=== PATIENT | male | born 1955 | race Caucasian/White ===

== ENCOUNTER → 2021-12-22 10:57 | Outpatient (CLI) | payer OTHER, SELFPAY ==
[2021-12-22 13:05] LABS: Add Manual Diff / Slide Review NO; Basophils Absolute Auto 0 /uL (0-100); Basophils Percent Auto 1.1 % (0-2); Eosinophils Absolute Auto 0 /uL (0-450); Hematocrit 44.7 % (41-53); Lymphocytes Absolute Auto 900 /uL (1100-4500); Lymphocytes Percent Auto 22.7 % (25-40); Mean Corpuscular HGB Conc 33.5 % (30-36); Mean Corpuscular Hemoglobin 31.5 PG (26-34); Monocytes Absolute Auto 600 /uL (0-900); Monocytes Percent Auto 14.5 % (3-14); Neutrophils Absolute Auto 2400 /uL (1500-7000); Neutrophils Percent Auto 60.7 % (50-75); Platelet Count 212 X10^3/uL (150-400); Red Blood Cell Count 4.76 X10^6/uL (4.5-5.9); Red Cell Distribution Width 14.2 % (11.6-14.8); White Blood Cell Count 3.9 X10^3/uL (4.5-11.0)
[2021-12-22 13:38] LABS: Alanine Aminotransferase 32 IU/L (<50); Albumin 4.5 g/dL (3.5-5.0); Albumin Globulin Ratio 1.4 (1.0-2.8); Alkaline Phosphatase 87 U/L (38-126); Aspartate Aminotransferase 36 IU/L (17-59); BUN Creatinine Ratio 19.7 (6-22); Bilirubin Total 0.8 mg/dL (0.2-1.3); Blood Urea Nitrogen 15 mg/dL (9-20); Calcium 9.4 mg/dL (8.4-10.2); Carbon Dioxide 31 mmol/L (22-32); Chloride 103 mmol/L (98-107); Cholesterol 152 mg/dL (140-199); Estimated Glomerular Filt Rate > 60.0 mL/min (>60); Globulin 3.2 g/dL (1.7-4.1); Glucose 97 mg/dL (80-110); HDL Cholesterol 42 mg/dL (40-60); HEMOLYSIS < 15 (0-50); LDL Cholesterol Calculated 99 mg/dL (<100); Potassium 4.7 mmol/L (3.4-5.1); Sodium 138 mmol/L (137-145); Total Protein 7.7 g/dL (6.3-8.2); Triglycerides 57 mg/dL (35-150)
[2021-12-22 14:06] LABS: Prostate Specific Antigen Scrn 1.23 ng/mL (0.1-4.0)
== END ==
PROVIDERS: PCP Internal Medicine; Referring Provider Internal Medicine; Visit Provider Internal Medicine
DX: G25.81 Restless legs syndrome (principal); I48.0 Paroxysmal atrial fibrillation; Z13.6 Encounter for screening for cardiovascular disorders; Z12.5 Encounter for screening for malignant neoplasm of prostate
CPT/HCPCS: 36415; 80053; 80061; 85025; G0103

== ENCOUNTER → 2022-04-02 08:08 | Outpatient (CLI) | payer OTHER, SELFPAY ==
--- NOTE | 2022-04-02 | DI.MRI.S_ITS ---
PROCEDURE: MR KNEE RT WO CON INDICATIONS: Pain in right knee/eval for loose body or meniscal TECHNIQUE: Noncontrast sagittal PD fast spin echo and T2 fast spin echo with fat saturation, sagittal 3-D FLASH with fat saturation; coronal T1 spin echo and PD fast spin echo with fat saturation, and axial PD fast spin echo with fat saturation through the knee. COMPARISON: [facility], CR, XR KNEE 4+ VIEWS RIGHT, 03/06/2022, 14:58. FINDINGS: Image quality: Excellent. Menisci: Amorphous high signal intensity within the posterior horn medial meniscus is present without articular surface extension, consistent with myxoid degeneration. There is linear horizontal high signal intensity within the lateral meniscal body, demonstrating free edge extension, indicating horizontal tearing, involving the inner, middle, and peripheral 3rd. Cruciate ligaments: The anterior cruciate ligament is intact. Moderate grade partial thickness tearing of the mid and superior aspect of the posterior cruciate ligament. Medial structures: The medial collateral ligament appears intact. Visualized portions of the pes anserinus tendons appear normal. No abnormal bursal fluid. Lateral structures: The lateral collateral ligament demonstrates mild T2 signal elevation at the femoral origin. The long and short heads of the biceps femoris tendon appear intact. The popliteus tendon appears normal. Iliotibial band appears normal. Anterior structures: The quadriceps and patellar tendons appear intact. Patellar alignment is normal. No femoral trochlear dysplasia or ventral trochlear prominence. No edema in the infrapatellar fat pad. Bones and cartilage: No bone marrow contusions or fractures. There is mild subchondral degenerative marrow edema within the patellar apex and medial patellar facet, as well as the central femoral trochlea. Moderate tricompartmental periarticular osteophyte formation. Moderate articular cartilage loss diffusely overlies the weight-bearing aspects of the medial and lateral compartments. Severe articular cartilage loss overlies the medial patellar facet and central femoral trochlea. Joint space: There is a moderate knee joint effusion. A few small intra-articular loose bodies are present measuring less than 5 mm diameter. No Corcoran's cyst. Normal appearing synovial plicae are incidentally noted. IMPRESSION: 1. Partial-thickness posterior cruciate ligament tear. 2. 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 3. Lateral meniscal tearing. 4. Low-grade partial thickness lateral collateral ligament tear. 5. Tricompartmental osteoarthritis with associated articular cartilage loss. 6. Knee joint effusion. Small intra-articular loose bodies. Dictated by: Ellen Morin M.D. on 04/02/2022 at 8:55 Approved by: Ellen Morin M.D. on 04/02/2022 at 8:58
== END ==
PROVIDERS: PCP Internal Medicine; Referring Provider Orthopaedic Surgery; Visit Provider Orthopaedic Surgery
DX: S83.521A Sprain of posterior cruciate ligament of right knee, initial encounter (principal); S83.421A Sprain of lateral collateral ligament of right knee, initial encounter; S83.281A Other tear of lateral meniscus, current injury, right knee, initial encounter; M17.11 Unilateral primary osteoarthritis, right knee; M25.461 Effusion, right knee; M25.561 Pain in right knee
CPT/HCPCS: 73721

== ENCOUNTER → 2022-12-24 09:17 | Outpatient (CLI) | payer OTHER, SELFPAY ==
[2022-12-24 11:52] LABS: Add Manual Diff / Slide Review NO; Basophils Absolute Auto 0 /uL (0-100); Eosinophils Absolute Auto 0 /uL (0-450); Eosinophils Percent Auto 1.2 % (2-4); Hematocrit 46.8 % (41-53); Hemoglobin 15.7 g/dL (13.5-17.5); Lymphocytes Absolute Auto 800 /uL (1100-4500); Lymphocytes Percent Auto 19.2 % (25-40); Mean Corpuscular HGB Conc 33.6 % (30-36); Mean Corpuscular Hemoglobin 31.3 PG (26-34); Mean Corpuscular Volume 93.3 fL (80-100); Monocytes Absolute Auto 500 /uL (0-900); Monocytes Percent Auto 13.4 % (3-14); Neutrophils Absolute Auto 2600 /uL (1500-7000); Neutrophils Percent Auto 65.2 % (50-75); Platelet Count 222 X10^3/uL (150-400); Red Blood Cell Count 5.02 X10^6/uL (4.5-5.9); Red Cell Distribution Width 14.3 % (11.6-14.8)
[2022-12-24 12:09] LABS: Alanine Aminotransferase 44 IU/L (<50); Albumin 4.6 g/dL (3.5-5.0); Albumin Globulin Ratio 1.5 (1.0-2.8); Alkaline Phosphatase 77 U/L (38-126); Aspartate Aminotransferase 31 IU/L (17-59); BUN Creatinine Ratio 16.9 (6-22); Bilirubin Total 0.6 mg/dL (0.2-1.3); Blood Urea Nitrogen 12 mg/dL (9-20); Calcium 9.4 mg/dL (8.4-10.2); Carbon Dioxide 30 mmol/L (22-32); Chloride 100 mmol/L (98-107); Cholesterol 194 mg/dL (140-199); Estimated Glomerular Filt Rate > 60 mL/min (>60); Glucose 111 mg/dL (80-110); HDL Cholesterol 44 mg/dL (40-60); HEMOLYSIS < 15 (0-50); LDL Cholesterol Calculated 124 mg/dL (<100); Potassium 5.1 mmol/L (3.4-5.1); Sodium 137 mmol/L (137-145); Total Protein 7.6 g/dL (6.3-8.2); Triglycerides 132 mg/dL (35-150)
[2022-12-24 12:35] LABS: Prostate Specific Antigen Scrn 1.32 ng/mL (0.1-4.0)
== END ==
PROVIDERS: PCP Internal Medicine; Referring Provider Internal Medicine; Visit Provider Internal Medicine
DX: G25.81 Restless legs syndrome (principal); Z13.6 Encounter for screening for cardiovascular disorders; Z12.5 Encounter for screening for malignant neoplasm of prostate; I48.0 Paroxysmal atrial fibrillation; Z13.220 Encounter for screening for lipoid disorders; Z79.899 Other long term (current) drug therapy
CPT/HCPCS: 36415; 80053; 80061; 85025; G0103

== ENCOUNTER 2023-05-18 09:00 | Outpatient (RCR) | payer OTHER, SELFPAY ==
--- NOTE | 2023-04-20 10:07 | PT.OIE ---
Current Diagnoses Low back pain, unspecified (04/20/23) Soft tissue disorder, unspecified (04/20/23) Abnormal posture (04/20/23) Weakness (04/20/23) Past Medical History (Last Reviewed 03/01/23 @ 10:24 by Mayra Posadas PA-C) Osteoarthritis, knee Paroxysmal atrial fibrillation (~2009) Restless leg syndrome (~2020) Past Surgical History (Last Reviewed 03/01/23 @ 10:24 by Mayra Posadas PA-C) Anesthesia History of appendectomy (~1966) History of cardiac radiofrequency ablation (~2010) History of cardioversion History of hernia repair (~1981) History of splenectomy (~1980) Visit Care Team Role Provider Type Chevy Caicedo MD Attending Provider Physician Family Provider Primary Care Provider Referring Provider Specialty: Internal Medicine Address: [address] [place] [address], [address], [facility] Email: [email or web address] Physical Therapy Initial Evaluation PT-OP-A Visit Information Start: 04/19/23 16:48 Freq: Status: Active Protocol: Document 04/20/23 08:43 [facility]AK (Rec: 04/20/23 10:06 [facility] [id number]) Out-Patient Physical Therapy Visit Information Visit Information Visit Type Initial Evaluation Visit Start Time 08:44 Visit Stop Time 09:30 Total Visit Minutes 46 Visit Number 1 Evaluation Information Evaluation Date 04/20/23 PT-OP-B Current Condition Start: 04/19/23 16:48 Freq: Status: Active Protocol: Document 04/20/23 08:43 SAK (Rec: 04/20/23 10:06 [facility] [id number]) Current Condition History of Current Condition Onset Date March 01 Current Complaints low back pain History of Current Condition History of occasional low back pain. Most recently was bent over feeding wood into a wood splitter for a long time. In the past sometimes it can be as simple as reaching to open the refrigerator door. In the past thought it was a nerve thing. No usual exercise program for the past 2 years after moving to [place]. Previously went to the gym and lifted weights 2-3x/wk. Pain is of sharp nature. Prior Treatments and Tests No prior PT for back, has tried heat, TENS No imaging Treatment Goals Patient/Caregiver Goals improve his back health, learn exercises and how to self- manage, identify causal factors for back pain Prior Functional Status Baseline Function- ADL's Independent Baseline Function- Mobility Independent Baseline Function- Gait indep Baseline Function- Work/School retired, houshold activities without difficulty Current Functional Impairments (Reported) Functional Limitations- ADL's painful Functional Limitations- Mobility/Gait painful Functional Limitations- Work/School painful Functional Limitations- Recreation/ painful Hobbies PT-OP-C Subjective Start: 04/19/23 16:48 Freq: Status: Active Protocol: Document 04/20/23 08:43 [facility] (Rec: 04/20/23 10:06 [facility] [id number]) Patient Questionnaires Oswestry Low Back Index Oswestry Score 8 OP-PT Pain Assessment Pain Assessment Grid Paper Pain Assessment Grid Completed Yes Location central lumbar Intensity 9 Description Sharp Frequency Intermittent Pain Aggravating Factors Activity Pain Alleviating Factors Inactivity PT-OP-H Neuro Start: 04/19/23 16:48 Freq: Status: Active Protocol: Document 04/20/23 08:43 [facility]AK (Rec: 04/20/23 10:06 [facility] [id number]) Sensation Evaluation Gross Sensation Gross Sensation WNL PT-OP-J Posture/Palpation/Skin Start: 04/19/23 16:48 Freq: Status: Active Protocol: Document 04/20/23 08:43 [facility]AK (Rec: 04/20/23 10:06 [facility] [id number]) Posture Evaluation Position Standing Head/C-Spine Posture Forward Head T-Spine Posture Increased Kyphosis L-Spine Posture Flattened Shoulder Posture (R) Rounded,(L) Forward Scapula Posture (L) Protracted,(R) Protracted Arm Posture (L) Neutral,(R) Neutral Palpation Assessment Location paraspinals Palpation Findings Soft Tissue Tightness Palpation Details less developed left vs right ( patient left handed) PT-OP-K Range of Motion Start: 04/19/23 16:48 Freq: Status: Active Protocol: Document 04/20/23 08:43 [facility]AK (Rec: 04/20/23 10:06 [facility] [id number]) Lumbar Spine Range of Motion Lumbar Spine Active ROM Limitations Soft Tissue Tightness Comments mod decrease all motions Hip Goniometric Range of Motion Hip Left Flexion w/Knee Flexed 110 Straight Leg Raise 80 Extension 5 Comments Refugio test positive Right Flexion w/Knee Flexed 110 Straight Leg Raise 65 Extension 0 Internal Rotation 10 External Rotation 70 PT-OP-M Strength Start: 04/19/23 16:48 Freq: Status: Active Protocol: Document 04/20/23 08:43 [facility] (Rec: 04/20/23 10:06 [facility] [id number]) Trunk Strength Trunk Manual Muscle Testing Flexion 4- Good- Extension 4- Good- Core Stabilization poor Hip Strength Hip Manual Muscle Testing Left Flexion (L2) 4+ Good+ Extension (S1) 4- Good- Abduction 4- Good- External Rotation 4- Good- Internal Rotation 4 Good Right Flexion (L2) 4+ Good+ Extension (S1) 4- Good- Abduction 4 Good External Rotation 4 Good Internal Rotation 4+ Good+ Knee Strength Knee Manual Muscle Testing henny Flexion (S2) 5 Normal Extension (L3) 5 Normal Ankle/Foot Strength Ankle and Foot Manual Muscle Testing henny Dorsiflexion (L4) 5 Normal Plantarflexion (S1) 5 Normal PT-OP-Q Treatments Start: 04/19/23 16:48 Freq: Status: Active Protocol: Document 04/20/23 08:43 [facility] (Rec: 04/20/23 10:06 [facility] [id number]) Therapeutic Exercises Supine Exercises LTR Comments add next session refugio stretch Side left Comments HEP HS stretch Side right Comments HEP Sidelying Exercises hip abd Equipment Used wall Comments add next session Standing Exercises doorway stretch Comments add next session Paleoff press Comments add next session wall posture Reps/Minutes 3 min Comments ADD TO HEP next session Other Exercises bird dog Comments HEP cat/cow Comments HEP PT-OP-T Assessment and Plan Start: 04/19/23 16:48 Freq: Status: Active Protocol: Document 04/20/23 08:43 [facility] (Rec: 04/20/23 10:06 [facility] [id number]) Physical Therapy Assessment Rehab Potential Rehabilitation Potential Good Evaluation Complexity Number of Personal Factors/Comorbidities 1-2 Number of Body Systems Impaired 3 Clinical Presentation at Evaluation Evolving Impairments Impairments Activity Tolerance,Pain, Posture,ROM,Strength Other Impairments Dec HS length and hip rot right, dec paraspinal muscle developmenet left, dec spinal mobility henny, Goals Three Impairment lack of regular exercise Electric[employer] Goal (LTG) Patient to be independent and compliant with HEP and community based exercise program for long-term fitness and pain managment. LTG Duration 06/20/23 Two Impairment postural dysfunction and poor body mechanics Short Term Goal (STG) Patient to be instructed in posture and body mechanics principles for back protection STG Duration 05/20/23 [employer] Goal (LTG) Patient to demonstrate good understanding of posture and body mechanics principles and demonstrate ability to self- correct posture, and perform usual activities with good body mechanics LTG Duration 06/20/23 One Impairment Decreased spinal and hip flexibility and core stabilization Short Term Goal (STG) Patient to be independent with HEP for spinal and hip flexibility and core stability Shelter Goal (LTG) Improve flexibility and core stabilization to WNL to allow him to return to prior level of function safely LTG Duration 06/20/23 Assessment Summary Assessment Patient presents to PT with function-limiting low back pain of an intermittant nature , most recent flare March 01; these episodes cause patient to be bed or chair ridden. He has improved since March 01 but is looking for help in identifying cause and knowing what to do better care for his back. Objective testing revealed decrease in spinal ROM, decreased core muscle strength, flexibility asymmetries, decreased paraspinal muscle development left as compred to right, postural dysfunction. Feel he would benefit from PT for patient education, ther ex with instruction in HEP, modalities and manual therapy PRN. Physical Therapy Plan Frequency and Duration Frequency of Treatment 2x/Week Duration of treatment (weeks) 6 Plan of Care Start Date 04/20/23 Plan of Care End Date 06/20/23 Therapeutic Interventions Therapeutic Interventions Home Exercise Program,Manual Therapy,Patient/Caregiver Education,Self-Care/Home Management,Soft Tissue Mobilization,Taping, Therapeutic Activities, Therapeutic Exercises Modalities Cold Pack/Ice Massage,Electric Stimulation,Hot Packs, Infrared Therapy,Traction- Mechanical,Ultrasound Next Visit Focus/Plan Next Note Type Treatment Note Next Visit Plan Review HEP, add LTR, wall posture, squats.
--- NOTE | 2023-04-20 10:08 | PT.OPPOC ---
Physical, Occupational & Speech Therapy At [facility] Current Diagnoses Low back pain, unspecified (04/20/23) Soft tissue disorder, unspecified (04/20/23) Abnormal posture (04/20/23) Weakness (04/20/23) Visit Care Team Role Provider Type Chevy Caicedo MD Attending Provider Physician Family Provider Primary Care Provider Referring Provider Specialty: Internal Medicine Address: [address] [place] [address], [address], [facility] Email: [email or web address] Plan Of Care PT-OP-T Assessment and Plan Start: 04/19/23 16:48 Freq: Status: Active Protocol: Document 04/20/23 08:43 [facility] (Rec: 04/20/23 10:06 [facility] [id number]) Physical Therapy Assessment Rehab Potential Rehabilitation Potential Good Evaluation Complexity Number of Personal Factors/Comorbidities 1-2 Number of Body Systems Impaired 3 Clinical Presentation at Evaluation Evolving Impairments Impairments Activity Tolerance,Pain, Posture,ROM,Strength Other Impairments Dec HS length and hip rot right, dec paraspinal muscle developmenet left, dec spinal mobility henny, Goals Three Impairment lack of regular exercise Assistant Manager Goal (LTG) Patient to be independent and compliant with HEP and community based exercise program for long-term fitness and pain managment. LTG Duration 06/20/23 Two Impairment postural dysfunction and poor body mechanics Short Term Goal (STG) Patient to be instructed in posture and body mechanics principles for back protection STG Duration 05/20/23 Care Home Goal (LTG) Patient to demonstrate good understanding of posture and body mechanics principles and demonstrate ability to self- correct posture, and perform usual activities with good body mechanics LTG Duration 06/20/23 One Impairment Decreased spinal and hip flexibility and core stabilization Short Term Goal (STG) Patient to be independent with HEP for spinal and hip flexibility and core stability Care Home Goal (LTG) Improve flexibility and core stabilization to WNL to allow him to return to prior level of function safely LTG Duration 06/20/23 Assessment Summary Assessment Patient presents to PT with function-limiting low back pain of an intermittant nature , most recent flare March 01; these episodes cause patient to be bed or chair ridden. He has improved since March 01 but is looking for help in identifying cause and knowing what to do better care for his back. Objective testing revealed decrease in spinal ROM, decreased core muscle strength, flexibility asymmetries, decreased paraspinal muscle development left as compred to right, postural dysfunction. Feel he would benefit from PT for patient education, ther ex with instruction in HEP, modalities and manual therapy PRN. Physical Therapy Plan Frequency and Duration Frequency of Treatment 2x/Week Duration of treatment (weeks) 6 Plan of Care Start Date 04/20/23 Plan of Care End Date 06/20/23 Therapeutic Interventions Therapeutic Interventions Home Exercise Program,Manual Therapy,Patient/Caregiver Education,Self-Care/Home Management,Soft Tissue Mobilization,Taping, Therapeutic Activities, Therapeutic Exercises Modalities Cold Pack/Ice Massage,Electric Stimulation,Hot Packs, Infrared Therapy,Traction- Mechanical,Ultrasound Next Visit Focus/Plan Next Note Type Treatment Note Next Visit Plan Review HEP, add LTR, wall posture, squats. Plan of Care Dates Plan of Care Start Date 04/20/23 Plan of Care End Date 06/20/23 Electronically Signed by: Marsha Morley, PT 04/20/23 9019 If you are in agreement with this Plan of Care, please return a signed and dated copy. I have reviewed this Plan of Care and certify that the skilled therapy services above are required to meet the patient?s needs. Physician Signature Date Printed Name and Credentials Clinical Instructor Signature Printed Name and Credentials
--- NOTE | 2023-04-22 14:58 | PT.OTN ---
Current Diagnoses Low back pain, unspecified (04/22/23) Soft tissue disorder, unspecified (04/22/23) Abnormal posture (04/22/23) Weakness (04/22/23) Physical Therapy Treatment Note PT-OP-A Visit Information Start: 04/19/23 16:48 Freq: Status: Active Protocol: Document 04/22/23 12:31 [facility] (Rec: 04/22/23 13:21 [facility] [id number]) Out-Patient Physical Therapy Visit Information Visit Information Visit Type Treatment Note Visit Start Time 12:31 Visit Stop Time 13:17 Total Visit Minutes 46 Visit Number 2 Evaluation Information Evaluation Date 04/20/23 PT-OP-B Current Condition Start: 04/19/23 16:48 Freq: Status: Active Protocol: Document 04/22/23 12:31 [facility] (Rec: 04/22/23 13:21 [facility] [id number]) Current Condition History of Current Condition Onset Date March 01 Current Complaints low back pain History of Current Condition History of occasional low back pain. Most recently was bent over feeding wood into a wood splitter for a long time. In the past sometimes it can be as simple as reaching to open the refrigerator door. In the past thought it was a nerve thing. No usual exercise program for the past 2 years after moving to [place]. Previously went to the gym and lifted weights 2-3x/wk. Pain is of sharp nature. Prior Treatments and Tests No prior PT for back, has tried heat, TENS No imaging Treatment Goals Patient/Caregiver Goals improve his back health, learn exercises and how to self- manage, identify causal factors for back pain PT-OP-C Subjective Start: 04/19/23 16:48 Freq: Status: Active Protocol: Document 04/22/23 12:31 [facility] (Rec: 04/22/23 13:21 [facility] [id number]) OP-PT Subjective Patient Comments Patient Comments No new c/o, did yard work yesterday with no ill effects. Did HEP. PT-OP-H Neuro Start: 04/19/23 16:48 Freq: Status: Active Protocol: Document 04/20/23 08:43 [facility] (Rec: 04/20/23 10:06 [facility] [id number]) Sensation Evaluation Gross Sensation Gross Sensation WNL PT-OP-J Posture/Palpation/Skin Start: 04/19/23 16:48 Freq: Status: Active Protocol: Document 04/20/23 08:43 [facility] (Rec: 04/20/23 10:06 [facility] [id number]) Posture Evaluation Position Standing Head/C-Spine Posture Forward Head T-Spine Posture Increased Kyphosis L-Spine Posture Flattened Shoulder Posture (R) Rounded,(L) Forward Scapula Posture (L) Protracted,(R) Protracted Arm Posture (L) Neutral,(R) Neutral Palpation Assessment Location paraspinals Palpation Findings Soft Tissue Tightness Palpation Details less developed left vs right ( patient left handed) PT-OP-K Range of Motion Start: 04/19/23 16:48 Freq: Status: Active Protocol: Document 04/20/23 08:43 [facility] (Rec: 04/20/23 10:06 [facility] [id number]) Lumbar Spine Range of Motion Lumbar Spine Active ROM Limitations Soft Tissue Tightness Comments mod decrease all motions Hip Goniometric Range of Motion Hip Left Flexion w/Knee Flexed 110 Straight Leg Raise 80 Extension 5 Comments Refugio test positive Right Flexion w/Knee Flexed 110 Straight Leg Raise 65 Extension 0 Internal Rotation 10 External Rotation 70 PT-OP-M Strength Start: 04/19/23 16:48 Freq: Status: Active Protocol: Document 04/20/23 08:43 [facility] (Rec: 04/20/23 10:06 [facility] [id number]) Trunk Strength Trunk Manual Muscle Testing Flexion 4- Good- Extension 4- Good- Core Stabilization poor Hip Strength Hip Manual Muscle Testing Left Flexion (L2) 4+ Good+ Extension (S1) 4- Good- Abduction 4- Good- External Rotation 4- Good- Internal Rotation 4 Good Right Flexion (L2) 4+ Good+ Extension (S1) 4- Good- Abduction 4 Good External Rotation 4 Good Internal Rotation 4+ Good+ Knee Strength Knee Manual Muscle Testing henny Flexion (S2) 5 Normal Extension (L3) 5 Normal Ankle/Foot Strength Ankle and Foot Manual Muscle Testing henny Dorsiflexion (L4) 5 Normal Plantarflexion (S1) 5 Normal PT-OP-Q Treatments Start: 04/19/23 16:48 Freq: Status: Active Protocol: Document 04/22/23 12:31 [facility] (Rec: 04/22/23 13:21 [facility] [id number]) Cardio Equipment Recumbent Stepper (Sci-Fit) Duration (Minutes) 5 Resistance 2-3 Seat Position 16 Therapeutic Exercises Supine Exercises LTR Reps/Minutes 10x refugio stretch Side bilateral Reps/Minutes 2x30 Comments mod assist for LE alignment HS stretch Side right Equipment Used strap Reps/Minutes 2x30 Sidelying Exercises hip abd Equipment Used wall Reps/Minutes 10x Standing Exercises squats Comments next session shoulder ext Equipment Used L4 TB Reps/Minutes 10x Comments cues for alignment, core rows Equipment Used L4 TB Reps/Minutes 10x5 Comments cues for alignment, core doorway stretch Comments add next session Paleoff press Standing Exercise Name sidestepping with TB resistance instead Equipment Used L2 TB held at belly Reps/Minutes 5x wall posture Comments next session Other Exercises bird dog Equipment Used yardstick Reps/Minutes 10x Comments improved alignment, stabilization cat/cow Reps/Minutes 5x Comments cues for segmental movement Self-Care/Home Management Treatment Education Patient Education Body Mechanics,Joint Protection,Posture PT-OP-T Assessment and Plan Start: 04/19/23 16:48 Freq: Status: Active Protocol: Document 04/22/23 12:31 [facility] (Rec: 04/22/23 13:21 [facility] [id number]) Physical Therapy Assessment Impairments Impairments Activity Tolerance,Pain, Posture,ROM,Strength Other Impairments Dec HS length and hip rot right, dec paraspinal muscle developmenet left, dec spinal mobility henny, Goals Three Impairment lack of regular exercise Chief Of Pediatric Urology Goal (LTG) Patient to be independent and compliant with HEP and community based exercise program for long-term fitness and pain managment. LTG Duration 06/20/23 Two Impairment postural dysfunction and poor body mechanics Short Term Goal (STG) Patient to be instructed in posture and body mechanics principles for back protection STG Duration 05/20/23 [facility] Pediatric Urology Goal (LTG) Patient to demonstrate good understanding of posture and body mechanics principles and demonstrate ability to self- correct posture, and perform usual activities with good body mechanics LTG Duration 06/20/23 One Impairment Decreased spinal and hip flexibility and core stabilization Short Term Goal (STG) Patient to be independent with HEP for spinal and hip flexibility and core stability Chief Of Pediatric Urology Goal (LTG) Improve flexibility and core stabilization to WNL to allow him to return to prior level of function safely LTG Duration 06/20/23 Assessment Summary Assessment Patient demonstrated good understanding of HEP with review, advanced with addition of new ex today with updated handout. No pain with yardwork yesterday. Good effort and response. Physical Therapy Plan Frequency and Duration Frequency of Treatment 2x/Week Duration of treatment (weeks) 6 Plan of Care Start Date 04/20/23 Plan of Care End Date 06/20/23 Therapeutic Interventions Therapeutic Interventions Home Exercise Program,Manual Therapy,Patient/Caregiver Education,Self-Care/Home Management,Soft Tissue Mobilization,Taping, Therapeutic Activities, Therapeutic Exercises Modalities Cold Pack/Ice Massage,Electric Stimulation,Hot Packs, Infrared Therapy,Traction- Mechanical,Ultrasound Next Visit Focus/Plan Next Note Type Treatment Note Next Visit Plan Add wall posture, squats, continue body mechanics education
--- NOTE | 2023-04-28 08:08 | PT.OTN ---
Current Diagnoses Low back pain, unspecified (04/26/23) Soft tissue disorder, unspecified (04/26/23) Abnormal posture (04/26/23) Weakness (04/26/23) Physical Therapy Treatment Note PT-OP-A Visit Information Start: 04/19/23 16:48 Freq: Status: Active Protocol: Document 04/26/23 07:31 SP (Rec: 04/26/23 08:21 SP [id number]) Out-Patient Physical Therapy Visit Information Visit Information Visit Type Treatment Note Visit Start Time 07:31 Visit Stop Time 08:21 Total Visit Minutes 44 Visit Number 3 Number of BLASTING ENTRY SPECIALIST Visits 1 Evaluation Information Evaluation Date 04/20/23 PT-OP-B Current Condition Start: 04/19/23 16:48 Freq: Status: Active Protocol: Document 04/22/23 12:31 SAK (Rec: 04/22/23 13:21 SAK [id number]) Current Condition History of Current Condition Onset Date March 01 Current Complaints low back pain History of Current Condition History of occasional low back pain. Most recently was bent over feeding wood into a wood splitter for a long time. In the past sometimes it can be as simple as reaching to open the refrigerator door. In the past thought it was a nerve thing. No usual exercise program for the past 2 years after moving to [place]. Previously went to the gym and lifted weights 2-3x/wk. Pain is of sharp nature. Prior Treatments and Tests No prior PT for back, has tried heat, TENS No imaging Treatment Goals Patient/Caregiver Goals improve his back health, learn exercises and how to self- manage, identify causal factors for back pain PT-OP-C Subjective Start: 04/19/23 16:48 Freq: Status: Active Protocol: Document 04/26/23 07:31 SP (Rec: 04/26/23 08:21 SP [id number]) OP-PT Subjective Patient Comments Patient Comments Pt hard to do stretch home due to no high bed but found fair result top stairs. Compliant with exercises given. PT-OP-H Neuro Start: 04/19/23 16:48 Freq: Status: Active Protocol: Document 04/20/23 08:43 SAK (Rec: 04/20/23 10:06 SAK [id number]) Sensation Evaluation Gross Sensation Gross Sensation WNL PT-OP-J Posture/Palpation/Skin Start: 04/19/23 16:48 Freq: Status: Active Protocol: Document 04/20/23 08:43 SAK (Rec: 04/20/23 10:06 SAK [id number]) Posture Evaluation Position Standing Head/C-Spine Posture Forward Head T-Spine Posture Increased Kyphosis L-Spine Posture Flattened Shoulder Posture (R) Rounded,(L) Forward Scapula Posture (L) Protracted,(R) Protracted Arm Posture (L) Neutral,(R) Neutral Palpation Assessment Location paraspinals Palpation Findings Soft Tissue Tightness Palpation Details less developed left vs right ( patient left handed) PT-OP-K Range of Motion Start: 04/19/23 16:48 Freq: Status: Active Protocol: Document 04/20/23 08:43 SAK (Rec: 04/20/23 10:06 SAK [id number]) Lumbar Spine Range of Motion Lumbar Spine Active ROM Limitations Soft Tissue Tightness Comments mod decrease all motions Hip Goniometric Range of Motion Hip Left Flexion w/Knee Flexed 110 Straight Leg Raise 80 Extension 5 Comments Refugio test positive Right Flexion w/Knee Flexed 110 Straight Leg Raise 65 Extension 0 Internal Rotation 10 External Rotation 70 PT-OP-M Strength Start: 04/19/23 16:48 Freq: Status: Active Protocol: Document 04/20/23 08:43 SAK (Rec: 04/20/23 10:06 [facility] [id number]) Trunk Strength Trunk Manual Muscle Testing Flexion 4- Good- Extension 4- Good- Core Stabilization poor Hip Strength Hip Manual Muscle Testing Left Flexion (L2) 4+ Good+ Extension (S1) 4- Good- Abduction 4- Good- External Rotation 4- Good- Internal Rotation 4 Good Right Flexion (L2) 4+ Good+ Extension (S1) 4- Good- Abduction 4 Good External Rotation 4 Good Internal Rotation 4+ Good+ Knee Strength Knee Manual Muscle Testing henny Flexion (S2) 5 Normal Extension (L3) 5 Normal Ankle/Foot Strength Ankle and Foot Manual Muscle Testing henny Dorsiflexion (L4) 5 Normal Plantarflexion (S1) 5 Normal PT-OP-Q Treatments Start: 04/19/23 16:48 Freq: Status: Active Protocol: Document 04/26/23 07:31 SP (Rec: 04/26/23 08:21 SP [id number]) Cardio Equipment Recumbent Stepper (Sci-Fit) Duration (Minutes) 6 Resistance 2-3 Seat Position 16 Therapeutic Exercises Supine Exercises refugio stretch Side bilateral Equipment Used off endtable (top stairs home) Reps/Minutes 2x30 Comments good form Standing Exercises self STMs Standing Exercise Name added: ES Equipment Used lacrosse ball (best resp) wall ES , roll pin legs Comments good response squats Standing Exercise Name added to HEP: eccentric squat Resistance arms across chest Equipment Used mesh chair Reps/Minutes x10 Comments cued hip hinge tap come stand shoulder ext Standing Exercise Name reviewed HEP Equipment Used L4>5 TB (plum) Reps/Minutes 10x Comments cues for alignment, core rows Standing Exercise Name reviewed HEP Equipment Used L5 TB> green #6 (latex) Reps/Minutes 10x5 Comments cues for alignment, core doorway stretch Standing Exercise Name added to HEP Side bilateral Equipment Used tennis ball>lacrosse ball Reps/Minutes 20 SH x2 various angles Paleoff press Standing Exercise Name sidestepping with TB resistance instead Side bilateral Equipment Used L2>4 TB (plum) held at belly Reps/Minutes 5x, 2SH pause Comments cued scap set, neutral pelvis, soft knee Other Exercises 1/2 kneel hip stretch Other Exercise Name added to HEP alternative to Refugio St Resistance challenged finding height perform Refugio Equipment Used pad under knee Reps/Minutes 30 2 Comments discussed PT-OP-T Assessment and Plan Start: 04/19/23 16:48 Freq: Status: Active Protocol: Document 04/26/23 07:31 SP (Rec: 04/26/23 08:21 SP [id number]) Physical Therapy Assessment Goals Three Impairment lack of regular exercise Detention Goal (LTG) Patient to be independent and compliant with HEP and community based exercise program for long-term fitness and pain managment. LTG Duration 06/20/23 Two Impairment postural dysfunction and poor body mechanics Short Term Goal (STG) Patient to be instructed in posture and body mechanics principles for back protection STG Duration 05/20/23 Detention Goal (LTG) Patient to demonstrate good understanding of posture and body mechanics principles and demonstrate ability to self- correct posture, and perform usual activities with good body mechanics LTG Duration 06/20/23 One Impairment Decreased spinal and hip flexibility and core stabilization Short Term Goal (STG) Patient to be independent with HEP for spinal and hip flexibility and core stability Ecology Teacher Goal (LTG) Improve flexibility and core stabilization to WNL to allow him to return to prior level of function safely LTG Duration 06/20/23 Assessment Summary Assessment Cues for scap and neutral LS during TB HEP, able to increase resistance today. Good feedback response to added self STMs lacrosse ball onwall best response decrease muscle tension. Improved mechanics sitting with cues arms across chest hip hinge. Instructed 1/2 kneel hip flexor stretch for alternative Refugio with good feedback. Physical Therapy Plan Frequency and Duration Frequency of Treatment 2x/Week Duration of treatment (weeks) 6 Plan of Care Start Date 04/20/23 Plan of Care End Date 06/20/23 Therapeutic Interventions Therapeutic Interventions Home Exercise Program,Manual Therapy,Patient/Caregiver Education,Self-Care/Home Management,Soft Tissue Mobilization,Taping, Therapeutic Activities, Therapeutic Exercises Modalities Cold Pack/Ice Massage,Electric Stimulation,Hot Packs, Infrared Therapy,Traction- Mechanical,Ultrasound Next Visit Focus/Plan Next Note Type Treatment Note Next Visit Plan Review: warm up scifit, eccentric squat POC: Add wall posture, squats, continue body mechanics education
--- NOTE | 2023-05-03 11:29 | PT.OTN ---
Current Diagnoses Low back pain, unspecified (05/03/23) Soft tissue disorder, unspecified (05/03/23) Abnormal posture (05/03/23) Weakness (05/03/23) Physical Therapy Treatment Note PT-OP-A Visit Information Start: 04/19/23 16:48 Freq: Status: Active Protocol: Document 05/03/23 10:44 SP (Rec: 05/03/23 11:37 SP [id number]) Out-Patient Physical Therapy Visit Information Visit Information Visit Type Treatment Note Visit Start Time 10:44 Visit Stop Time 11:29 Total Visit Minutes 45 Visit Number 4 Number of CLOAK ROOM ATTENDANT Visits 2 Evaluation Information Evaluation Date 04/20/23 PT-OP-B Current Condition Start: 04/19/23 16:48 Freq: Status: Active Protocol: Document 04/22/23 12:31 SAK (Rec: 04/22/23 13:21 SAK [id number]) Current Condition History of Current Condition Onset Date March 01 Current Complaints low back pain History of Current Condition History of occasional low back pain. Most recently was bent over feeding wood into a wood splitter for a long time. In the past sometimes it can be as simple as reaching to open the refrigerator door. In the past thought it was a nerve thing. No usual exercise program for the past 2 years after moving to [place]. Previously went to the gym and lifted weights 2-3x/wk. Pain is of sharp nature. Prior Treatments and Tests No prior PT for back, has tried heat, TENS No imaging Treatment Goals Patient/Caregiver Goals improve his back health, learn exercises and how to self- manage, identify causal factors for back pain PT-OP-C Subjective Start: 04/19/23 16:48 Freq: Status: Active Protocol: Document 05/03/23 10:44 SP (Rec: 05/03/23 11:37 SP [id number]) OP-PT Subjective Patient Comments Patient Comments Pt went river kayaking tandem with , friend nearby. Did end up flipping and hit L hip on rock so pretty sore. Did set up bands on wall mount for various angles. PT-OP-H Neuro Start: 04/19/23 16:48 Freq: Status: Active Protocol: Document 04/20/23 08:43 SAK (Rec: 04/20/23 10:06 SAK [id number]) Sensation Evaluation Gross Sensation Gross Sensation WNL PT-OP-J Posture/Palpation/Skin Start: 04/19/23 16:48 Freq: Status: Active Protocol: Document 04/20/23 08:43 SAK (Rec: 04/20/23 10:06 SAK [id number]) Posture Evaluation Position Standing Head/C-Spine Posture Forward Head T-Spine Posture Increased Kyphosis L-Spine Posture Flattened Shoulder Posture (R) Rounded,(L) Forward Scapula Posture (L) Protracted,(R) Protracted Arm Posture (L) Neutral,(R) Neutral Palpation Assessment Location paraspinals Palpation Findings Soft Tissue Tightness Palpation Details less developed left vs right ( patient left handed) PT-OP-K Range of Motion Start: 04/19/23 16:48 Freq: Status: Active Protocol: Document 04/20/23 08:43 SAK (Rec: 04/20/23 10:06 SAK [id number]) Lumbar Spine Range of Motion Lumbar Spine Active ROM Limitations Soft Tissue Tightness Comments mod decrease all motions Hip Goniometric Range of Motion Hip Left Flexion w/Knee Flexed 110 Straight Leg Raise 80 Extension 5 Comments Refugio test positive Right Flexion w/Knee Flexed 110 Straight Leg Raise 65 Extension 0 Internal Rotation 10 External Rotation 70 PT-OP-M Strength Start: 04/19/23 16:48 Freq: Status: Active Protocol: Document 04/20/23 08:43 [facility] (Rec: 04/20/23 10:06 [facility] [id number]) Trunk Strength Trunk Manual Muscle Testing Flexion 4- Good- Extension 4- Good- Core Stabilization poor Hip Strength Hip Manual Muscle Testing Left Flexion (L2) 4+ Good+ Extension (S1) 4- Good- Abduction 4- Good- External Rotation 4- Good- Internal Rotation 4 Good Right Flexion (L2) 4+ Good+ Extension (S1) 4- Good- Abduction 4 Good External Rotation 4 Good Internal Rotation 4+ Good+ Knee Strength Knee Manual Muscle Testing henny Flexion (S2) 5 Normal Extension (L3) 5 Normal Ankle/Foot Strength Ankle and Foot Manual Muscle Testing henny Dorsiflexion (L4) 5 Normal Plantarflexion (S1) 5 Normal PT-OP-Q Treatments Start: 04/19/23 16:48 Freq: Status: Active Protocol: Document 05/03/23 10:44 SP (Rec: 05/03/23 11:37 SP [id number]) Cardio Equipment Recumbent Stepper (Sci-Fit) Duration (Minutes) 7 Resistance 3 Seat Position 16 Other UE/LEs, 55 RPMs Therapeutic Exercises Supine Exercises bridge Supine Exercise Name 1. bridge 2. bridge w/ knee flex/ext Side bilateral Resistance 65cm tball Equipment Used initiated in PT- good response Reps/Minutes 10 reps, 5 reps x3 sets Comments cued TA/ PPT awareness lift/in and out- little lat knee pressure B but ok LTR Side bilateral Resistance AROM and stretch Reps/Minutes 10x reps, 2 reps 3 breath hold stretch Comments States good feedback stretch and core fac reps HS stretch Supine Exercise Name HEP reviewed Side right Equipment Used strap Reps/Minutes 2x30 Comments today instructed hip hinge standing Standing Exercises stretch Standing Exercise Name 1. ITB 2. piriformis (better stand than sit) stretches Side left Resistance added to HEP Reps/Minutes 30 each Comments good feedback stretch. self STMs Standing Exercise Name discussion review helped home bruise feeling and not want to do right now. 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 lacrosse ball Comments good response squats Standing Exercise Name reviewed HEP: eccentric squat Resistance arms across chest Equipment Used mesh chair Reps/Minutes x10 Comments good form shoulder ext Standing Exercise Name reviewed HEP Equipment Used L4>5 TB (plum) Reps/Minutes 10x Comments cues for alignment, core rows Standing Exercise Name reviewed HEP Equipment Used green #6 (latex) Reps/Minutes 10x5 Comments cues for alignment, core doorway stretch Standing Exercise Name reviewed HEP Side bilateral Reps/Minutes 20 SH x2 various angles Paleoff press Standing Exercise Name stationary rotation TB resistance instead Side bilateral Equipment Used 4 TB (plum) held at chest height Reps/Minutes 5x, 2SH pause Comments Good posturing, finds better effort rotation than side step 7/10 PT-OP-T Assessment and Plan Start: 04/19/23 16:48 Freq: Status: Active Protocol: Document 05/03/23 10:44 SP (Rec: 05/03/23 11:37 SP [id number]) Physical Therapy Assessment Goals Three Impairment lack of regular exercise Longterm Goal (LTG) Patient to be independent and compliant with HEP and community based exercise program for long-term fitness and pain managment. LTG Duration 06/20/23 Two Impairment postural dysfunction and poor body mechanics Short Term Goal (STG) Patient to be instructed in posture and body mechanics principles for back protection STG Duration 05/20/23 Longterm Goal (LTG) Patient to demonstrate good understanding of posture and body mechanics principles and demonstrate ability to self- correct posture, and perform usual activities with good body mechanics LTG Duration 06/20/23 One Impairment Decreased spinal and hip flexibility and core stabilization Short Term Goal (STG) Patient to be independent with HEP for spinal and hip flexibility and core stability Fall Intern Goal (LTG) Improve flexibility and core stabilization to WNL to allow him to return to prior level of function safely 05/03/23: added standing ITB, piriformis stretch for L hip recovery,good response back feels better. Added resisted LTR, tball bridge and added HS curl AROM. LTG Duration 06/20/23 progressing 05/03/23 Assessment Summary Assessment Pt good feedback response to added standing L hip stretching and core bridge w/ HS curl over tball today, no LB irritation and good core progression response. Updated Resisted Rotation vs step outs due to response better effort felt painfree. Pt declined HOs new ther ex today. Pt states wants see how does til next appt if need add more appts passed 05/18. Physical Therapy Plan Frequency and Duration Frequency of Treatment 2x/Week Duration of treatment (weeks) 6 Plan of Care Start Date 04/20/23 Plan of Care End Date 06/20/23 Therapeutic Interventions Therapeutic Interventions Home Exercise Program,Manual Therapy,Patient/Caregiver Education,Self-Care/Home Management,Soft Tissue Mobilization,Taping, Therapeutic Activities, Therapeutic Exercises Modalities Cold Pack/Ice Massage,Electric Stimulation,Hot Packs, Infrared Therapy,Traction- Mechanical,Ultrasound Next Visit Focus/Plan Next Note Type Treatment Note Next Visit Plan Warm up scifit review L hip stretching, tball bridge/hs curl, eccentric squat POC: Add wall posture, continue body mechanics education
--- NOTE | 2023-05-12 14:19 | PT.OTN ---
Current Diagnoses Low back pain, unspecified (05/12/23) Soft tissue disorder, unspecified (05/12/23) Abnormal posture (05/12/23) Weakness (05/12/23) Physical Therapy Treatment Note PT-OP-A Visit Information Start: 04/19/23 16:48 Freq: Status: Active Protocol: Document 05/12/23 09:00 [facility] (Rec: 05/12/23 09:46 [facility] [id number]) Out-Patient Physical Therapy Visit Information Visit Information Visit Type Treatment Note Visit Start Time 09:00 Visit Stop Time 09:45 Total Visit Minutes 45 Visit Number 5 Number of MANAGING MEMBER Visits 0 Evaluation Information Evaluation Date 04/20/23 PT-OP-B Current Condition Start: 04/19/23 16:48 Freq: Status: Active Protocol: Document 04/22/23 12:31 SAK (Rec: 04/22/23 13:21 SAK [id number]) Current Condition History of Current Condition Onset Date March 01 Current Complaints low back pain History of Current Condition History of occasional low back pain. Most recently was bent over feeding wood into a wood splitter for a long time. In the past sometimes it can be as simple as reaching to open the refrigerator door. In the past thought it was a nerve thing. No usual exercise program for the past 2 years after moving to [place]. Previously went to the gym and lifted weights 2-3x/wk. Pain is of sharp nature. Prior Treatments and Tests No prior PT for back, has tried heat, TENS No imaging Treatment Goals Patient/Caregiver Goals improve his back health, learn exercises and how to self- manage, identify causal factors for back pain PT-OP-C Subjective Start: 04/19/23 16:48 Freq: Status: Active Protocol: Document 05/12/23 09:00 [facility] (Rec: 05/12/23 09:46 [facility] [id number]) OP-PT Subjective Patient Comments Patient Comments Hip still sore to the touch. Doing HEP. PT-OP-H Neuro Start: 04/19/23 16:48 Freq: Status: Active Protocol: Document 04/20/23 08:43 SAK (Rec: 04/20/23 10:06 [facility] [id number]) Sensation Evaluation Gross Sensation Gross Sensation WNL PT-OP-J Posture/Palpation/Skin Start: 04/19/23 16:48 Freq: Status: Active Protocol: Document 04/20/23 08:43 [facility] (Rec: 04/20/23 10:06 [facility] [id number]) Posture Evaluation Position Standing Head/C-Spine Posture Forward Head T-Spine Posture Increased Kyphosis L-Spine Posture Flattened Shoulder Posture (R) Rounded,(L) Forward Scapula Posture (L) Protracted,(R) Protracted Arm Posture (L) Neutral,(R) Neutral Palpation Assessment Location paraspinals Palpation Findings Soft Tissue Tightness Palpation Details less developed left vs right ( patient left handed) PT-OP-K Range of Motion Start: 04/19/23 16:48 Freq: Status: Active Protocol: Document 04/20/23 08:43 [facility] (Rec: 04/20/23 10:06 [facility] [id number]) Lumbar Spine Range of Motion Lumbar Spine Active ROM Limitations Soft Tissue Tightness Comments mod decrease all motions Hip Goniometric Range of Motion Hip Left Flexion w/Knee Flexed 110 Straight Leg Raise 80 Extension 5 Comments Refugio test positive Right Flexion w/Knee Flexed 110 Straight Leg Raise 65 Extension 0 Internal Rotation 10 External Rotation 70 PT-OP-M Strength Start: 04/19/23 16:48 Freq: Status: Active Protocol: Document 04/20/23 08:43 [facility] (Rec: 04/20/23 10:06 [facility] [id number]) Trunk Strength Trunk Manual Muscle Testing Flexion 4- Good- Extension 4- Good- Core Stabilization poor Hip Strength Hip Manual Muscle Testing Left Flexion (L2) 4+ Good+ Extension (S1) 4- Good- Abduction 4- Good- External Rotation 4- Good- Internal Rotation 4 Good Right Flexion (L2) 4+ Good+ Extension (S1) 4- Good- Abduction 4 Good External Rotation 4 Good Internal Rotation 4+ Good+ Knee Strength Knee Manual Muscle Testing henny Flexion (S2) 5 Normal Extension (L3) 5 Normal Ankle/Foot Strength Ankle and Foot Manual Muscle Testing henny Dorsiflexion (L4) 5 Normal Plantarflexion (S1) 5 Normal PT-OP-Q Treatments Start: 04/19/23 16:48 Freq: Status: Active Protocol: Document 05/12/23 09:00 [facility] (Rec: 05/12/23 09:46 [facility] [id number]) Cardio Equipment Recumbent Stepper (Sci-Fit) Duration (Minutes) 8 Resistance 3 Seat Position 16 Other UE/LEs, 55 RPMs Therapeutic Exercises Supine Exercises piriformis Supine Exercise Name stretch Reps/Minutes 2x30 ITB stretch Equipment Used strap Reps/Minutes 2x30 bridge Supine Exercise Name henny to unil Equipment Used initiated in PT- good response Reps/Minutes 10x HS stretch Supine Exercise Name HEP reviewed Side right Equipment Used strap Reps/Minutes 2x30 Comments today instructed hip hinge standing Sidelying Exercises open book Reps/Minutes 5x Comments cues for segmental movement, deep breathing with hold Standing Exercises doorway stretch Standing Exercise Name reviewed HEP Side bilateral Reps/Minutes 20 SH x2 various angles Paleoff press Standing Exercise Name stationary rotation TB resistance instead Side bilateral Equipment Used 4 TB (plum) held at chest height Reps/Minutes 5x, 2SH pause Comments Good posturing, finds better effort rotation than side step 05/03 Other Exercises 1/2 kneel hip stretch Other Exercise Name added to HEP alternative to Refugio St Equipment Used pad under knee Reps/Minutes 30 2 Comments discussed bird dog Reps/Minutes 5x 5 henny Comments more cues requ with right UE and left LE lift cat/cow Reps/Minutes 5x Comments cues for segmental movement Self-Care/Home Management Treatment Education Patient Education Body Mechanics,Joint Protection,Posture Other Education discussed back protection when crabbing with cues for long spine, neutral posture, core stab, brace against gunnel PT-OP-T Assessment and Plan Start: 04/19/23 16:48 Freq: Status: Active Protocol: Document 05/12/23 09:00 JAIR (Rec: 05/12/23 09:46 [facility] [id number]) Physical Therapy Assessment Goals Three Impairment lack of regular exercise Film Processing Shift Supervisor Goal (LTG) Patient to be independent and compliant with HEP and community based exercise program for long-term fitness and pain managment. LTG Duration 06/20/23 Two Impairment postural dysfunction and poor body mechanics Short Term Goal (STG) Patient to be instructed in posture and body mechanics principles for back protection STG Duration 05/20/23 Film Processing Shift Supervisor Goal (LTG) Patient to demonstrate good understanding of posture and body mechanics principles and demonstrate ability to self- correct posture, and perform usual activities with good body mechanics LTG Duration 06/20/23 One Impairment Decreased spinal and hip flexibility and core stabilization Short Term Goal (STG) Patient to be independent with HEP for spinal and hip flexibility and core stability Film Processing Shift Supervisor Goal (LTG) Improve flexibility and core stabilization to WNL to allow him to return to prior level of function safely 05/03/23: added standing ITB, piriformis stretch for L hip recovery,good response back feels better. Added resisted LTR, tball bridge and added HS curl AROM. LTG Duration 06/20/23 progressing 05/03/23 Assessment Summary Assessment Able to progress bridge to single leg, reviewed stretching with better stretch supine with strap for IT band noted. Added open book exercise with good understanding demonstrated. Anticipate 1 further PT appt then discharge. Physical Therapy Plan Frequency and Duration Frequency of Treatment 2x/Week Duration of treatment (weeks) 6 Plan of Care Start Date 04/20/23 Plan of Care End Date 06/20/23 Therapeutic Interventions Therapeutic Interventions Home Exercise Program,Manual Therapy,Patient/Caregiver Education,Self-Care/Home Management,Soft Tissue Mobilization,Taping, Therapeutic Activities, Therapeutic Exercises Modalities Cold Pack/Ice Massage,Electric Stimulation,Hot Packs, Infrared Therapy,Traction- Mechanical,Ultrasound Next Visit Focus/Plan Next Note Type Treatment Note Next Visit Plan Add wall posture, further functional body mechanics education as needed, discuss recent crabbing tolerance. Anticipate discharte after next appt.
--- NOTE | 2023-05-18 09:45 | PT.OTN ---
Current Diagnoses Low back pain, unspecified (05/18/23) Soft tissue disorder, unspecified (05/18/23) Abnormal posture (05/18/23) Weakness (05/18/23) Physical Therapy Treatment Note PT-OP-A Visit Information Start: 04/19/23 16:48 Freq: Status: Active Protocol: Document 05/18/23 09:04 SP (Rec: 05/18/23 09:53 SP [id number]) Out-Patient Physical Therapy Visit Information Visit Information Visit Type Treatment Note Visit Start Time 09:04 Visit Stop Time 09:45 Total Visit Minutes 41 Visit Number 6 Number of JUKEBOX CHECKER Visits 1 Evaluation Information Evaluation Date 04/20/23 PT-OP-B Current Condition Start: 04/19/23 16:48 Freq: Status: Active Protocol: Document 04/22/23 12:31 SAK (Rec: 04/22/23 13:21 SAK [id number]) Current Condition History of Current Condition Onset Date March 01 Current Complaints low back pain History of Current Condition History of occasional low back pain. Most recently was bent over feeding wood into a wood splitter for a long time. In the past sometimes it can be as simple as reaching to open the refrigerator door. In the past thought it was a nerve thing. No usual exercise program for the past 2 years after moving to [place]. Previously went to the gym and lifted weights 2-3x/wk. Pain is of sharp nature. Prior Treatments and Tests No prior PT for back, has tried heat, TENS No imaging Treatment Goals Patient/Caregiver Goals improve his back health, learn exercises and how to self- manage, identify causal factors for back pain PT-OP-C Subjective Start: 04/19/23 16:48 Freq: Status: Active Protocol: Document 05/18/23 09:04 SP (Rec: 05/18/23 09:53 SP [id number]) OP-PT Subjective Patient Comments Patient Comments Pt reports feeling stiff this am low back, didn't do any stretching the past 3 days. Was sitting in an upright chair last night at friends for a while and thinking a contributer. PT-OP-H Neuro Start: 04/19/23 16:48 Freq: Status: Active Protocol: Document 04/20/23 08:43 SAK (Rec: 04/20/23 10:06 SAK [id number]) Sensation Evaluation Gross Sensation Gross Sensation WNL PT-OP-J Posture/Palpation/Skin Start: 04/19/23 16:48 Freq: Status: Active Protocol: Document 04/20/23 08:43 SAK (Rec: 04/20/23 10:06 SAK [id number]) Posture Evaluation Position Standing Head/C-Spine Posture Forward Head T-Spine Posture Increased Kyphosis L-Spine Posture Flattened Shoulder Posture (R) Rounded,(L) Forward Scapula Posture (L) Protracted,(R) Protracted Arm Posture (L) Neutral,(R) Neutral Palpation Assessment Location paraspinals Palpation Findings Soft Tissue Tightness Palpation Details less developed left vs right ( patient left handed) PT-OP-K Range of Motion Start: 04/19/23 16:48 Freq: Status: Active Protocol: Document 04/20/23 08:43 SAK (Rec: 04/20/23 10:06 SAK [id number]) Lumbar Spine Range of Motion Lumbar Spine Active ROM Limitations Soft Tissue Tightness Comments mod decrease all motions Hip Goniometric Range of Motion Hip Left Flexion w/Knee Flexed 110 Straight Leg Raise 80 Extension 5 Comments Refugio test positive Right Flexion w/Knee Flexed 110 Straight Leg Raise 65 Extension 0 Internal Rotation 10 External Rotation 70 PT-OP-M Strength Start: 04/19/23 16:48 Freq: Status: Active Protocol: Document 04/20/23 08:43 SAK (Rec: 04/20/23 10:06 [facility] [id number]) Trunk Strength Trunk Manual Muscle Testing Flexion 4- Good- Extension 4- Good- Core Stabilization poor Hip Strength Hip Manual Muscle Testing Left Flexion (L2) 4+ Good+ Extension (S1) 4- Good- Abduction 4- Good- External Rotation 4- Good- Internal Rotation 4 Good Right Flexion (L2) 4+ Good+ Extension (S1) 4- Good- Abduction 4 Good External Rotation 4 Good Internal Rotation 4+ Good+ Knee Strength Knee Manual Muscle Testing henny Flexion (S2) 5 Normal Extension (L3) 5 Normal Ankle/Foot Strength Ankle and Foot Manual Muscle Testing henny Dorsiflexion (L4) 5 Normal Plantarflexion (S1) 5 Normal PT-OP-Q Treatments Start: 04/19/23 16:48 Freq: Status: Active Protocol: Document 05/18/23 09:04 SP (Rec: 05/18/23 09:53 SP [id number]) Cardio Equipment Recumbent Stepper (Sci-Fit) Duration (Minutes) 10 Resistance 4 Seat Position 16 Other UE/LEs, 55 RPMs, 1.42 miles Therapeutic Exercises Prone Exercises elbow plank Prone Exercise Name initiated in PT ( has done in his past) Reps/Minutes 30SH Standing Exercises shoulder ext Standing Exercise Name reviewed HEP Equipment Used L6 green TB Reps/Minutes x15 reps Comments good form rows Standing Exercise Name reviewed HEP Equipment Used green #6 (latex) Reps/Minutes 10x5 Comments cues for alignment, core Paleoff press Standing Exercise Name stationary rotation TB resistance instead Side bilateral Equipment Used 4>6 TB green held at chest height Reps/Minutes 5 x press, 10 rotation Comments Good posturing Other Exercises stretch Other Exercise Name child's pose between planks Reps/Minutes 30 x2 Comments limited sitting back on heels 1/2 kneel chop Other Exercise Name added to HEP Side bilateral Resistance TB #5 plum Equipment Used same side knee down Reps/Minutes x15 reps Comments cued hand position, back alignment Self-Care/Home Management Treatment Education Patient Education Body Mechanics,Joint Protection,Posture Other Education TIme spent discussed posturing during ther ex to allow core recruitment and decrease posterior neck stress during plank and carryover standing. PT-OP-T Assessment and Plan Start: 04/19/23 16:48 Freq: Status: Active Protocol: Document 05/18/23 09:04 SP (Rec: 05/18/23 09:53 SP [id number]) Physical Therapy Assessment Goals Three Impairment lack of regular exercise Nursing Home Goal (LTG) Patient to be independent and compliant with HEP and community based exercise program for long-term fitness and pain managment. 05/18/23: added planks, resisted chops, child's pose stretching. LTG Duration 06/20/23 Two Impairment postural dysfunction and poor body mechanics Short Term Goal (STG) Patient to be instructed in posture and body mechanics principles for back protection STG Duration 05/20/23 Military Logistics Specialist Goal (LTG) Patient to demonstrate good understanding of posture and body mechanics principles and demonstrate ability to self- correct posture, and perform usual activities with good body mechanics LTG Duration 06/20/23 One Impairment Decreased spinal and hip flexibility and core stabilization Short Term Goal (STG) Patient to be independent with HEP for spinal and hip flexibility and core stability Military Logistics Specialist Goal (LTG) Improve flexibility and core stabilization to WNL to allow him to return to prior level of function safely 05/03/23: added standing ITB, piriformis stretch for L hip recovery,good response back feels better. Added resisted LTR, tball bridge and added HS curl AROM. LTG Duration 06/20/23 progressing 05/03/23 Assessment Summary Assessment Pt reports core fac with added 1/2 kneel chops and planks today, cues provided for pelvic alignment, trunk and head positioning for proper form. Good feedback LB stretch during child's pose, limited in sit back ROM due to knees tight anteriorly. Physical Therapy Plan Frequency and Duration Frequency of Treatment 2x/Week Duration of treatment (weeks) 6 Plan of Care Start Date 04/20/23 Plan of Care End Date 06/20/23 Therapeutic Interventions Therapeutic Interventions Home Exercise Program,Manual Therapy,Patient/Caregiver Education,Self-Care/Home Management,Soft Tissue Mobilization,Taping, Therapeutic Activities, Therapeutic Exercises Modalities Cold Pack/Ice Massage,Electric Stimulation,Hot Packs, Infrared Therapy,Traction- Mechanical,Ultrasound Next Visit Focus/Plan Next Note Type Treatment Note Next Visit Plan Anticipate next appt last tx: Add wall posture, further functional body mechanics education as needed, discuss recent crabbing tolerance.
--- NOTE | 2023-06-24 15:57 | PT.OPDS ---
Current Diagnoses Low back pain, unspecified (05/18/23) Soft tissue disorder, unspecified (05/18/23) Abnormal posture (05/18/23) Weakness (05/18/23) Visit Care Team Role Provider Type Chevy Caicedo MD Attending Provider Physician Family Provider Primary Care Provider Referring Provider Specialty: Internal Medicine Address: [address] [place] [address], [facility] Email: [email or web address] Visit Number Visit Number 6 Discharge Summary PT-OP-B Current Condition Start: 04/19/23 16:48 Freq: Status: Active Protocol: Document 04/22/23 12:31 SAK (Rec: 04/22/23 13:21 SAK [id number]) Current Condition History of Current Condition Onset Date March 01 Current Complaints low back pain History of Current Condition History of occasional low back pain. Most recently was bent over feeding wood into a wood splitter for a long time. In the past sometimes it can be as simple as reaching to open the refrigerator door. In the past thought it was a nerve thing. No usual exercise program for the past 2 years after moving to [place]. Previously went to the gym and lifted weights 2-3x/wk. Pain is of sharp nature. Prior Treatments and Tests No prior PT for back, has tried heat, TENS No imaging Treatment Goals Patient/Caregiver Goals improve his back health, learn exercises and how to self- manage, identify causal factors for back pain PT-OP-C Subjective Start: 04/19/23 16:48 Freq: Status: Active Protocol: Document 05/18/23 09:04 SP (Rec: 05/18/23 09:53 SP [id number]) OP-PT Subjective Patient Comments Patient Comments Pt reports feeling stiff this am low back, didn't do any stretching the past 3 days. Was sitting in an upright chair last night at friends for a while and thinking a contributer. PT-OP-H Neuro Start: 04/19/23 16:48 Freq: Status: Active Protocol: Document 04/20/23 08:43 SAK (Rec: 04/20/23 10:06 SAK [id number]) Sensation Evaluation Gross Sensation Gross Sensation WNL PT-OP-J Posture/Palpation/Skin Start: 04/19/23 16:48 Freq: Status: Active Protocol: Document 04/20/23 08:43 SAK (Rec: 04/20/23 10:[address] [facility] [id number]) Posture Evaluation Position Standing Head/C-Spine Posture Forward Head T-Spine Posture Increased Kyphosis L-Spine Posture Flattened Shoulder Posture (R) Rounded,(L) Forward Scapula Posture (L) Protracted,(R) Protracted Arm Posture (L) Neutral,(R) Neutral Palpation Assessment Location paraspinals Palpation Findings Soft Tissue Tightness Palpation Details less developed left vs right ( patient left handed) PT-OP-K Range of Motion Start: 04/19/23 16:48 Freq: Status: Active Protocol: Document 04/20/23 08:43 SAK (Rec: 04/20/23 10:[address] [facility] [id number]) Lumbar Spine Range of Motion Lumbar Spine Active ROM Limitations Soft Tissue Tightness Comments mod decrease all motions Hip Goniometric Range of Motion Hip Left Flexion w/Knee Flexed 110 Straight Leg Raise 80 Extension 5 Comments Refugio test positive Right Flexion w/Knee Flexed 110 Straight Leg Raise 65 Extension 0 Internal Rotation 10 External Rotation 70 PT-OP-M Strength Start: 04/19/23 16:48 Freq: Status: Active Protocol: Document 04/20/23 08:43 SAK (Rec: 04/20/23 10:[address] [facility] [id number]) Trunk Strength Trunk Manual Muscle Testing Flexion 4- Good- Extension 4- Good- Core Stabilization poor Hip Strength Hip Manual Muscle Testing Left Flexion (L2) 4+ Good+ Extension (S1) 4- Good- Abduction 4- Good- External Rotation 4- Good- Internal Rotation 4 Good Right Flexion (L2) 4+ Good+ Extension (S1) 4- Good- Abduction 4 Good External Rotation 4 Good Internal Rotation 4+ Good+ Knee Strength Knee Manual Muscle Testing henny Flexion (S2) 5 Normal Extension (L3) 5 Normal Ankle/Foot Strength Ankle and Foot Manual Muscle Testing henny Dorsiflexion (L4) 5 Normal Plantarflexion (S1) 5 Normal PT-OP-T Assessment and Plan Start: 04/19/23 16:48 Freq: Status: Active Protocol: Document 06/24/23 15:56 SAK (Rec: 06/24/23 15:57 SAK [id number]) Physical Therapy Plan Discharge Physical Therapy Discharge Reasons Goals Met
== END 2023-08-09 12:12 | disposition home or self-care (01) ==
LOC: PHYS 09:00
PROVIDERS: Family Provider Internal Medicine; PCP Internal Medicine; Referring Provider Internal Medicine; Visit Provider Internal Medicine
DX: M54.50 Low back pain, unspecified (principal); R53.1 Weakness; R29.3 Abnormal posture; M79.9 Soft tissue disorder, unspecified
CPT/HCPCS: 97110; 97162; 97535

== ENCOUNTER → 2023-08-26 08:34 | Outpatient (CLI) | payer OTHER, SELFPAY ==
--- NOTE | 2023-08-26 14:32 | PM.TREADMILL ---
Cardiac Stress Test Report Referral & Results Date Patient Seen: 08/26/23 Requesting provider: Chevy Caicedo Indication: Paroxysmal atrial fibrillation Rest ECG: Unremarkable, sinus rhythm Procedure Note: Today following both written and verbal informed consent the patient was exercised according to a standard [place] protocol patient went for a total of 7 minutes 56 seconds achieving a maximum heart rate of 139 maximum systolic blood pressure of 220. This is approximately 10.1 METS. Exercise was terminated at this point because of targets were met and patient was unable to continue because of fatigue. There were no cardiovascular symptoms. Patient was also given Cardiolite through a previously started Hep-Lock IV by the diagnostic imaging staff approximately 1 minute prior to the cessation of exercise. There were no ST-T segment changes Normal heart rate and blood pressure response to exercise Function aerobic impairment rates proximally-20% on the active scale or 120% of normal Impression: No evidence of ischemia based on usual ECG criteria Please see perfusion imaging report as well Please note: Actual ECG tracings can be found in the PACS system.
--- NOTE | 2023-08-27 03:19 | DI.NM.S_ITS ---
DATE OF SERVICE: 08/26/2023 PROCEDURE PERFORMED: Exercise treadmill stress and rest myocardial perfusion imaging with gating to assess ejection fraction and regional wall motion. ORDERING PROVIDER: Chevy Caicedo MD INDICATIONS: The patient is a 67-year-old male with a history of paroxysmal atrial fibrillation and a strong family history of coronary artery disease. CARDIAC STRESS: The patient was able to exercise for 7 minutes 56 seconds on a standard Addison protocol suggesting good exercise capacity with an GRECIA of -20%, achieving 10.1 METs. He had a normal heart rate response, achieving a maximum heart rate of 139 BPM (90% of his predicted maximum) and a mild hypertensive blood pressure response with a resting blood pressure of 138/70, increasing to a maximum of 220/80. No chest discomfort or anginal symptoms were reported. His resting ECG shows sinus rhythm with normal ST segments. There are no significant ST- segment shifts or arrhythmias with stress except for a rare isolated PVC in recovery. At 7 minutes of exercise at a heart rate of 130 BPM, 26.0 millicuries of technetium-99m Myoview was injected and he was imaged 15 minutes later using a gated SPECT acquisition protocol. Earlier in the day while at rest, he had been injected with 12.5 millicuries of technetium-99m Myoview and was imaged 15 minutes later, again using a gated SPECT acquisition protocol. FINDINGS: RAW DATA: There is marginal image quality due to the patient's body habitus and mildly reduced tracer uptake. The lung/heart ratio is at the upper limits of normal at 0.40 with a normal TID ratio 0.91. QUANTITATED GATED SPECT:: Post-stress ejection fraction is 59% without any focal wall motion abnormality and specifically the inferior wall appears to have normal contractility. Resting ejection fraction is 61% with a moderately increased resting end-diastolic volume of 203 mL. MYOCARDIAL PERFUSION SCAN: Post-stress supine images show a slightly heterogeneous tracer pattern, likely due to the patient's body habitus. There is mildly reduced tracer activity in the inferior wall and apex in a pattern that would be consistent with diaphragmatic attenuation artifact and chest wall artifact. This is supported by the near-complete resolution of both defects on the prone images, although a very slight defect remains present in the mid inferolateral wall. There are no concerning perfusion defects. The resting images show a similar perfusion pattern to that of the post-stress supine images with minimal, if any, improvement in the defects. IMPRESSION: 1. Probable normal myocardial perfusion study for ischemia but with mildly reduced sensitivity because of moderately reduced image quality.. 2. Mild fixed inferior perfusion defect that nearly completely resolves on prone imaging. This most likely reflects diaphragmatic attenuation artifact. There is no compelling evidence for any significant myocardial ischemia or previous myocardial infarction. 3. Normal left ventricular systolic function with moderate left ventricular enlargement. The lung/heart ratio is at the upper limits of normal, which could be a sign of pulmonary congestion but requires clinical correlation. 4. Good exercise capacity without angina or ECG evidence of ischemia. There were no arrhythmias. He had a mild hypertensive blood pressure response to exercise. Atul Marquez - LAURIE/louis/gerry doc#: [id number]/job#: [id number] dd: 08/26/2023 16:31:00 dt: 08/27/2023 03:08:00 DICTATING /COPIES TO: Sam Dale MD; Chevy Caicedo MD COPIES MNE: MARK ANTHONY;
== END ==
PROVIDERS: Family Provider Internal Medicine; PCP Internal Medicine; Referring Provider Internal Medicine; Visit Provider Internal Medicine
DX: I48.0 Paroxysmal atrial fibrillation (principal)
CPT/HCPCS: 78452; 93016; 93017; 93018; A9502

== ENCOUNTER → 2025-07-20 09:48 | Outpatient (CLI) | payer OTHER, SELFPAY ==
[2025-07-20 10:46] LABS: Add Manual Diff / Slide Review NO; Hematocrit 49.0 % (41-53); Hemoglobin 16.7 g/dL (13.5-17.5); Lymphocytes Absolute Auto 800 /uL (1100-4500); Mean Corpuscular HGB Conc 34.1 % (30-36); Mean Corpuscular Hemoglobin 31.6 PG (26-34); Mean Corpuscular Volume 92.9 fL (80-100); Platelet Count 236 X10^3/uL (150-400)
[2025-07-20 10:57] LABS: Hemoglobin A1C% w Est Avg Glu 8.0 % (4.0-6.0)
[2025-07-20 11:07] LABS: Blood Urea Nitrogen 14 mg/dL (9-20); Calcium 9.6 mg/dL (8.4-10.2); Carbon Dioxide 25 mmol/L (22-32); Chloride 103 mmol/L (98-107); Estimated Glomerular Filt Rate > 60 mL/min (>60); Glucose 161 mg/dL (70-99); HEMOLYSIS 23 (0-50); Potassium 4.6 mmol/L (3.4-5.1); Sodium 137 mmol/L (137-145)
[2025-07-22 11:13] LABS: PSA, Total 5.8 ng/mL (0.0-4.0)
== END ==
PROVIDERS: Family Provider Internal Medicine; PCP Internal Medicine; Referring Provider Internal Medicine Cardiovascular Disease; Visit Provider Internal Medicine Cardiovascular Disease
DX: E11.9 Type 2 diabetes mellitus without complications (principal); I48.0 Paroxysmal atrial fibrillation; R97.20 Elevated prostate specific antigen [PSA]
CPT/HCPCS: 36415; 80048; 83036; 84153; 84154; 85025

== ENCOUNTER 2025-08-29 09:53 | Day surgery (SDC) | payer OTHER, SELFPAY ==
--- NOTE | 2025-08-29 | PATH_ITS ---
[facility] Accession Number: [id number] No. of containers..01 Tissue . 01 Material submitted: . colon - COLON, SIGMOID POLYP . 01 Diagnosis: COLON, SIGMOID POLYP : Tubular adenoma. [facility] 09/10/20251721 Local . 01 Electronically signed: . Min Julien MD, Pathologist NPI- [id number] . 01 Gross description: . Received one formalin-filled container, labeled with the patient's name and sigmoid colon polyp. The specimen consists of one fragment of luna soft tissue which measures 0.4 x 0.3 x 0.2 cm. The specimen is totally submitted in one cassette. ([id number]) /[facility] 09/10/20251721 Local . 01 Pathologist provided ICD-10: D12.5 . 01 CPT . 825779 Specimen Comment: A courtesy copy of this report has been sent to [phone] Performed at: [address] [facility] [address] [address], [place], [place] [id number] MD Min Julien MD Phone: [phone]
[2025-08-29 10:37] VITALS: BP 155/73; PULSE 46; RESP 16; TEMP 36.4; O2SAT 98
[2025-08-29] MEDS: LACTATED RINGERS 1,000 ML 42 ML IV (10:51)
--- NOTE | 2025-08-29 11:15 | PM.HP.IH.1 ---
History of Present Illness History of Present Illness Date Patient Seen: 08/29/25 Chief complaint: SDC Narrative: Screening colonoscopy last 10 years ago [facility] Medical History (Updated 07/30/25 @ 09:55 by Chvey Caicedo MD) Elevated PSA Diabetes type 2 Osteoarthritis, knee Paroxysmal atrial fibrillation (~2009) Restless leg syndrome (~2020) Surgical History Anesthesia History of cardiac radiofrequency ablation (~2010) History of cardioversion History of hernia repair (~1981) History of splenectomy (~1980) History of appendectomy (~1966) Family History Father Stroke Brother History of heart disease Grandfather History of heart disease Grandfather Stroke Social History Smoking Status: Never smoker Meds Home Medications and Allergies Home Medications ?Medication ?Instructions ?Recorded ?Confirmed ?Type dabigatran etexilate 150 mg 150 mg PO BID Afib 12/22/22 08/29/25 History capsule (Pradaxa) pramipexole 1 mg tablet 1 mg PO TID #270 tabs 12/06/24 08/29/25 Rx gabapentin 600 mg tablet 1,200 mg PO BEDTIME 06/22/25 08/29/25 History sotalol 120 mg tablet 120 mg PO BID 06/26/25 08/29/25 History atorvastatin 40 mg tablet 40 mg PO DAILY #90 tabs 07/30/25 08/29/25 Rx Allergies Allergy/AdvReac Type Severity Reaction Status Date / Time No Known Drug Allergies Allergy Verified 08/29/25 10:38 Exam Vital Signs (past 8 hours): - 08/29/25 10:37 Temperature 97.5 F L Pulse Rate 46 L Respiratory Rate 16 Blood Pressure 155/73 H Pulse Oximetry 98 Oxygen Delivery Method Room Air Oxygen Delivery Method Room Air Narrative Exam Narrative: Oropharynx free of lesions Chest clear to auscultation percussion Cardiac exam reveals no S3 or murmur Objective Labs Labs: Laboratory Results - last 24 hr 08/29/25 10:48 POC Whole Bld Glucose 108 H Assessment & Plan Time-Based Coding :: [TOTAL MINUTES] spent with patient and on the chart (including review of chart, obtaining history, exam, reviewing outside data, placing orders, documenting exam and treatment plan, and counseling patient) on [DATE]. [employer] Document charge(s): No
--- NOTE | 2025-08-29 11:16 | PM.OP.COLON ---
Operative Date/Time/Diagnoses Date of procedure: 08/29/25 Time of procedure: 11:44 Pre-op diagnosis: Follow-up screening colonoscopy Post-op diagnosis: same Procedure & Clinicians Same procedure(s) as scheduled: No Indications: Follow-up screening last 10 years ago Surgeon: Marisela Bahena Anesthesia Type: Other Procedure Notes Procedure in detail: After informed consent was obtained the patient was placed in left lateral decubitus position. The video colonoscope was placed in the rectum slowly advanced cecum. Preparation was good. On slow withdrawal mucosa was carefully examined. The scope was removed. The patient tolerated procedure well. Blood loss none Complications none Sedation mac Findings 1. 5 mm polyp at 30 cm/sigmoid Jumbo biopsy removed completely 2. Otherwise negative colonoscopy to cecum We will be in touch regarding his biopsies but will need follow-up colonoscopy most likely in 5 years Estimated Blood Loss: 0 Complications: none
[2025-08-29 11:47] VITALS: BP 129/70; PULSE 51; RESP 16; TEMP 36.8; O2SAT 96
== END 2025-08-29 12:13 | disposition home or self-care (01) ==
PROVIDERS: Family Provider Internal Medicine; PCP Internal Medicine; Referring Provider Internal Medicine; Visit Provider Internal Medicine Gastroenterology
PROC: 0DJD8ZZ Inspection of Lower Intestinal Tract, Via Natural or Artificial Opening Endoscopic (ICD-10-PCS; CPT 45378; principal; 2025-08-29 11:00)
DX: Z12.11 Encounter for screening for malignant neoplasm of colon (principal); D12.5 Benign neoplasm of sigmoid colon; E11.9 Type 2 diabetes mellitus without complications; I48.0 Paroxysmal atrial fibrillation; G25.81 Restless legs syndrome; Z79.01 Long term (current) use of anticoagulants
CPT/HCPCS: 45380; 82962; J2704; J7120